=== PATIENT | female | born 1990 | race Caucasian/White ===

== ENCOUNTER 2022-03-13 11:51 | Emergency (ER) | payer MEDICAID ==
[~2022-03-13] VITALS: Ht 172.7 cm; Wt 55.3 kg
[2022-03-13 12:15] VITALS: BP 116/60
[2022-03-13] MEDS ORDERED: ACETAMINOPHEN 500 MG TAB PO ONE (12:30)
[2022-03-13] MEDS ORDERED: DEXT1SYP9 PO (16:21)
== END 2022-03-13 16:42 | disposition home or self-care (01) ==
LOC: ER 11:51
DX: J10.1 Influenza due to other identified influenza virus with other respiratory manifestations (principal); R94.31 Abnormal electrocardiogram [ECG] [EKG]; Z20.822 Contact with and (suspected) exposure to COVID-19
CPT/HCPCS: 36415; 87426; 87804; 93005

== ENCOUNTER 2024-03-22 15:08 | Emergency (ER) | payer MEDICAID, OTHER ==
[~2024-03-22] VITALS: Ht 172.7 cm; Wt 58.0 kg
[~2024-03-22 15:08] MED LIST: DEXT1SYP9 PO
[2024-03-22] MEDS: MORPHINE SULFATE 4 MG/ML SYR/VIAL IV ONE (16:00)
[2024-03-22 16:02] LABS: Basophils # (auto) 0 10 ^3/uL (0-0.2); Basophils % (auto) 0.2 % (0.0-2.0); Eosinophils # (auto) 0 10 ^3/uL (0-0.8); Hematocrit 39.6 % (36.0-46.0); Hemoglobin 13.4 g/dL (12.2-16.2); Lymphocytes # (auto) 0.8 10 ^3/uL (0.4-5.4); Lymphocytes % (auto) 5.9 % (10.0-50.0); Mean Corpuscular Hemoglobin 31.6 pg (28.0-32.0); Mean Corpuscular Hgb Conc. 33.8 g/dL (32.0-36.0); Mean Corpuscular Volume 93.5 fL (80.0-100.0); Monocytes # (auto) 0.3 10 ^3/uL (0-1.3); Monocytes % (auto) 2.4 % (0.0-12.0); Neutrophils # (auto) 12.1 10 ^3/uL (1.6-8.6); Neutrophils % (auto) 91.5 % (37.0-80.0); Platelet Count (auto) 189 10^3/uL (140-450); Red Blood Cells 4.24 10^6/uL (4.0-5.20); Red Cell Distribution Width 12.6 % (11.8-14.3); White Blood Cell 13.2 10^3/uL (4.4-10.8)
[2024-03-22 16:18] LABS: Alanine Aminotransferase 31 U/L (7-40); Anion Gap 10 (5-15); Aspartate Aminotransferase 29 U/L (13-40); BUN/Creatinine Ratio 10.1 (10.0-20.0); Bilirubin, Total 0.3 mg/dL (0.2-1.0); Carbon Dioxide 22 mmol/L (20-31); Potassium 3.9 mmol/L (3.5-5.1); Total Protein 6.4 g/dL (5.7-8.2)
--- NOTE | 2024-03-22 16:20 | ED.PDOC ---
GI ASSESSMENT HPI Comments 33 year old female brought in by EMS presents to the ED with a chief complaint of epigastric pain onset today about 3 hours ago. Patient states she was drinking ETOH last night and woke up today experiencing nausea, vomiting, diarrhea, epigastric pain, generalized weakness, sweats, chills. She has a past medical history of Sclerosis and denies fevers, chest pain, shortness of breath, constipation, headache, dizziness. No other symptoms or modifying factors present at this time. Chief Complaint: Abdominal Pain Time Seen by MD: 15:33 Primary Care Provider: NONE Allergies: Coded Allergies: NO KNOWN ALLERGIES (Unverified , 12/26/09) Home Meds Active Scripts Dextromethorphan-Guaifenesin (Robitussin-Dm) 10 Ml Sr, 20 ML PO Q4HPRN PRN, #1 BOTTLE 0 Refills Prov:MIMI LUND [facility] 03/13/22 Information Source: Patient Mode of Arrival: EMS Timing: Hours Duration: Since onset Prehospital treatment: None Severity: Moderate Recent: Ingestion of ETOH Recent Hx of: None Pain Location: Diffuse Associated sign and symptoms: Nausea, Vomiting, Diarrhea, Abdominal Pain Past Medical History Past Medical History (Other): Scoliosis Surgical History (Other): Scoliosis surgery 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 Family History Family History: No family hx of DM, No family hx of HTN Social History Smoker: Less Than 1 Pack/Day Alcohol: Occasionally Drugs: Denies Drug Use Lives In: Home Constitutional: reports: chills, sweats, weakness; denies: diaphoresis, fatigue, fever, malaise, others EENTM: denies: blurred vision, double vision, ear bleeding, ear discharge, ear drainage, ear pain, ear ringing, eye pain, eye redness, hearing loss, mouth pain, mouth swelling, nasal discharge, nose bleeding, nose congestion, nose pain, photophobia, tearing, throat pain, throat swelling, voice changes, others Respiratory: denies: cough, hemoptysis, orthopnea, SOB at rest, shortness of breath, SOB with excertion, stridor, wheezing, others Cardiovascular: denies: chest pain, dizzy spells, diaphoresis, Dyspnea on exertion, edema, irregular heart beat, left arm pain, lightheadedness, palpitations, PND, syncope, others Gastrointestinal: reports: abdominal pain, diarrhea, nausea, vomiting; denies: abdomen distended, blood streaked bowels, constipated, dysphagia, difficulty swallowing, hematemesis, melena, poor appetite, poor fluid intake, rectal bleeding, rectal pain, others Genitourinary: denies: abnormal vagina bleeding, burning, dyspareunia, dysuria, flank pain, frequency, hematuria, incontinence, pain, , vagina discharge, urgency, others Neurological: denies: dizziness, fainting, headache, left sided numbness, left sided weakness, numbness, paresthesia, pre-existing deficit, right sided numbness, right sided weakness, seizure, speech problems, tingling, tremors, weakness, others Musculoskeletal: denies: back pain, gout, joint pain, joint swelling, muscle pain, muscle stiffness, neck pain, others Integumetry: denies: bruises, change in color, change in hair/nails, dryness, laceration, lesions, lumps, rash, wounds, others Allergic/Immunocompromised: denies: Difficulty Healing, Frequent Infections, Hives, Itching, others Hematologic/Lymphatic: denies: anemia, blood clots, easy bleeding, easy brui sing, swollen glands, others Endocrine: denies: excessive hunger, excessive sweating, excessive thirst, ex cessive urination, flushing, intolerance to cold, intolerance to heat, unexplained weight gain, unexplained weight loss, others Psychiatric: denies: anxiety, bipolar disorder, depression, hopeless, panic disorder, schizophrenia, sleepless, suicidal, others All Other Systems: Reviewed and Negative Physical Exam General Appearance: Moderate Distress HEENT: Other (Pupils symmetric, no facial asymmetry, moist mucous membrane) Neck: Full Range of Motion, Normal Inspection Respiratory: Lungs Clear, No Accessory Muscle Use, No Respiratory Distress, Normal Breath Sounds Cardiovascular: No Edema, No JVD, Regular Rate/Rhythm Breast Exam: Deferred Gastrointestinal: Epigastric, Soft, Tenderness Genitalia: Deferred Pelvic: Deferred Rectal: Deferred Extremities: Normal inspection, Normal range of motion, Non-tender, No pedal edema Neurologic: Alert (Oriented x4), Normal Affect, Normal Mood, Other (Ambulatory without difficulty. No gross focal deficit.) Cerebellar Function: NOT DONE Reflexes: NOT DONE Skin: Dry, Pallor, Warm Lymphatic: NOT DONE Was a procedure done? Was a procedure done?: No GI differential Dx Differential Diagnosis: Diverticular disease, Gastritis/PUD, Gastroenteritis, Inflammatory BD, Ischemic Bowel, Electrolyte Imbalance, Food Poisoning, , Bacterial, Parasitic, Viral, Hypovolemia, Renal Failure, Stress Ulcer X-Ray, Labs, Meds, VS Vital Signs Date Time Temp Pulse Resp B/P (MAP) Pulse Ox O2 Delivery O2 Flow Rate FiO2 03/22/24 18:37 65 17 100 Room Air 03/22/24 18:37 98.0 65 17 118/70 (86) 100 98.0 03/22/24 15:39 97.9 58 20 104/55 (71) 99 Lab Test 03/22/24 15:38 Range/Units White Blood Count 13.2 H 4.4-10.8 10^3/uL Red Blood Count 4.24 4.0-5.20 10^6/uL Hemoglobin 13.4 12.2-16.2 g/dL Hematocrit 39.6 36.0-46.0 % Mean Corpuscular Volume 93.5 80.0-100.0 fL Mean Corpuscular Hemoglobin 31.6 28.0-32.0 pg Mean Corpuscular Hemoglobin Concent 33.8 32.0-36.0 g/dL Red Cell Distribution Width 12.6 11.8-14.3 % Platelet Count 189 140-450 10^3/uL Mean Platelet Volume 8.6 6.9-10.8 fL Neutrophils (%) (Auto) 91.5 H 37.0-80.0 % Lymphocytes (%) (Auto) 5.9 L 10.0-50.0 % Monocytes (%) (Auto) 2.4 0.0-12.0 % Eosinophils (%) (Auto) 0.0 0.0-7.0 % Basophils (%) (Auto) 0.2 0.0-2.0 % Neutrophils # (Auto) 12.1 H 1.6-8.6 10 ^3/uL Lymphocytes # (Auto) 0.8 0.4-5.4 10 ^3/uL Monocytes # (Auto) 0.3 0-1.3 10 ^3/uL Eosinophils # (Auto) 0 0-0.8 10 ^3/uL Basophils # (Auto) 0 0-0.2 10 ^3/uL Nucleated Red Blood Cells 0.0 % Sodium Level 146 H 136-145 mmol/L Potassium Level 3.9 3.5-5.1 mmol/L Chloride Level 114 H 98-107 mmol/L Carbon Dioxide Level 22 20-31 mmol/L Anion Gap 10 5-15 Blood Urea Nitrogen 7 L 9-23 mg/dL Creatinine 0.69 0.550-1.02 mg/dL Glomerular Filtration Rate Calc 119 >90 mL/min BUN/Creatinine Ratio 10.1 10.0-20.0 Serum Glucose 129 H 74-106 mg/dL Calcium Level 8.5 L 8.7-10.4 mg/dL Total Bilirubin 0.3 0.2-1.0 mg/dL Aspartate Amino Transferase (AST) 29 13-40 U/L Alanine Aminotransferase (ALT) 31 7-40 U/L Alkaline Phosphatase 44 L 46-116 U/L Total Protein 6.4 5.7-8.2 g/dL Albumin 4.0 3.2-4.8 g/dL Lipase 25 12-53 U/L Beta HCG, Quantitative 1.5 1.5-4.2 mIU/mL Current Medications Medications (Trade) Dose Ordered Sig/Henok Route Start Time Stop Time Status Last Admin Ondansetron HCl (Zofran) 4 mg ONCE ONCE IV 03/22/24 16:00 03/22/24 16:02 DC 03/22/24 18:37 Famotidine (Pepcid Injection) 20 mg ONCE ONCE IV 03/22/24 16:00 03/22/24 16:02 DC 03/22/24 18:37 Sodium Chloride 2,000 ml @ 1,000 mls/hr Q2H ONCE IV 03/22/24 16:00 03/22/24 17:59 DC 03/22/24 18:34 PROCEDURE(s): ABPL - CT AB PEL WO CON-NO ORAL OR IV REASON: upper abd pain ORDER NUMBER(s): [id number], ACCESSION NUMBER(s): [id number] Exam: CT CT AB PEL WO CON-NO ORAL OR IV History: upper abd pain Comparison Study: None Technique: Multidetector spiral CT of the abdomen was performed from lung bases to pubic symphysis. Imaging was performed without IV contrast. Axial, coronal and sagittal multiplanar reformats were obtained from the axial data set by the technologist. Radiation Dose : 1. Abdomen/Pelvis: CTDIvol 5.4 mGy, DLP 263.85 mGy*cm. Findings: Evaluation of solid organs is limited due to lack of intravenous contrast use. Lung Bases: No acute or significant lung base finding. Normal heart size. No pleural or pericardial effusion. Liver: The liver is normal in size. No focal lesions. Gallbladder and Biliary Tree: Unremarkable Spleen: Unremarkable Pancreas: The pancreas is grossly normal in appearance. Adrenal Glands: Unremarkable Kidneys: Kidneys are grossly normal without calculi or hydronephrosis. Bladder: Grossly unremarkable for degree of distention. Bowel: The stomach is grossly normal in appearance. Mild wall thickening in a few loops of bowel in the lower pelvis may reflect mild enteritis. Normal appendix is visualized in the right lower quadrant without findings of appendicitis. Ascites: Absent Lymphadenopathy: No mesenteric, retroperitoneal or periportal lymphadenopathy. Abdominal Wall and Mesentery: Unremarkable. Vasculature: The visualized abdominal aorta is normal in size and caliber. Evaluation of abdominal and pelvic vessels is limited due to lack of intravenous contrast. Pelvic Organs: Unremarkable Musculoskeletal: No aggressive focal bony lesions, acute fractures or dislocation. Surgical fixation hardware is seen throughout the thoracic spine. IMPRESSION: 1. Mild wall thickening in a few loops of bowel in the lower pelvis this may reflect mild enteritis. No drainable fluid collection. No free air. 2. Radiation optimization: All CT scans at this facility use at least one of these dose optimization techniques: automated exposure control mA and/or kV adjustment per patient size (includes targeted exams where dose is matched to clinical indication) or iterative reconstruction. X-Ray, Labs, Meds, VS Comment 33-year-old female with a history of scoliosis complaining of abdominal pain, nausea, vomiting and diarrhea. Vitals remarkable for heart rate 58, blood pressure 104/55 Exam remarkable for epigastric tenderness to palpation Rhythm strip independently interpreted by me: Sinus rhythm, rate 60, no ectopy. CT abdomen and pelvis IMPRESSION: 1. Mild wall thickening in a few loops of bowel in the lower pelvis this may reflect mild enteritis. No drainable fluid collection. No free air. 2. Radiation optimization: All CT scans at this facility use at least one of these dose optimization techniques: automated exposure control mA and/or kV adjustment per patient size (includes targeted exams where dose is matched to clinical indication) or iterative reconstruction. CBC remarkable for WBC 13.2, differential shows a left shift, CMP remarkable for sodium 146, chloride 114, no other abnormality of acute significance, hCG negative, lipase normal Patient treated with the following in the ED: 2 L 0.9 normal saline IV bolus, morphine 4 mg IV, Zofran 4 mg IV, Pepcid 20 mg IV, Toradol 30 mg IV On re-evaluation, patient states pain has improved, vitals are stable, and she is tolerating p.o. fluids. Repeat abdominal exam is benign. Hospitalization was considered, however patient had rapid improvement of her symptoms with treatment in the ED, and I no longer feel hospitalization is necessary. Patient appears stable for outpatient treatment and close follow-up with her primary doctor. I will prescribe antibiotics for possible bacterial enteritis, antiemetics and pain meds. Rx Cipro, Flagyl, Zofran, Bentyl, ibuprofen Time of 1ST Reevaluation: 16:03 Reevaluation 1ST: Unchanged Time of 2ND Reevaluation: 19:18 Reevaluation 2ND: Improved Patient Education/Counseling: Diagnosis, Treatment, Prognosis Family Education/Counseling: No Family Present Additional Information HI Data VOL/Complexity Ordered tests: LAB, CT, PHA reviewed results: CBC, CMP, BETA HCG, UA, LIPASE, DRUG SCREEN independent historian: EMS Interpreted results: CT Discuss tx/ results: patient, medical personnel, Departure 1 Departure Time of Disposition: 19:19 Impression: Primary Impression: Enteritis Disposition: 01 HOME / SELF CARE / HOMELESS Condition: Stable Additional Instructions: Your CT scan showed possible enteritis, which may be due to a viral or bacterial infection. I have prescribed antibiotics for a possible bacterial infection, medication for nausea and pain medication. Follow-up with your primary doctor in 1-2 days. Return to ER for persistent or worsening symptoms. e-Prescriptions Ibuprofen Micronized (Ibuprofen) 600 Mg Tab 600 MG PO Q6HP PRN, #30 TAB prn pain Prov: SHAYLEE DONG MD 03/22/24 Dicyclomine Hcl (BENTYL CAPSULE) 10 Mg Cp 2 CAP PO Q6HPRN, #30 CAP 3 Refills prn abdominal pain Prov: SHAYLEE DONG MD 03/22/24 Ondansetron Odt 4MG Tab (ZOFRAN PO) 4 Mg Tb 4 MG PO TID PRN, #30 TAB prn n/v ODT TAB-DISSOLVE IN MOUTH, THEN SWALLOW Prov: SHAYLEE DONG MD 03/22/24 Metronidazole (Flagyl) 500 Mg Tab 1 TAB PO TID for 7 Days, #21 TAB Prov: SHAYLEE DONG MD 03/22/24 Ciprofloxacin Hcl (Cipro) 500 Mg Tab 1 TAB PO BID for 7 Days, #14 TAB Prov: SHAYLEE DONG MD 03/22/24 Discharged With: Relative Critical Care Note Critical Care Time?: No Stability Stability form required: No Heart Score Heart Score: Heart Score Response (Comments) Value History N/A 0 EKG N/A 0 Age N/A 0 Risk Factors N/A 0 Troponin N/A 0 Total 0 I personally scribed for SHAYLEE DONG MD ([email or web address]) on 03/22/24 at 16:20. Electronically submitted by Pamela Corral ([email or web address]). I personally scribed for SHAYLEE DONG MD ([email or web address]) on 03/22/24 at 16:23. Electronically submitted by Pamela Corral ([email or web address]). SHAYLEE DONG MD Mar 22, 2024 16:20
[2024-03-22 16:44] LABS: Alkaline Phosphatase 44 U/L (46-116); Blood Urea Nitrogen 7 mg/dL (9-23); Calcium 8.5 mg/dL (8.7-10.4); Chloride 114 mmol/L (98-107); Glucose 129 mg/dL (74-106); Sodium 146 mmol/L (136-145)
--- NOTE | 2024-03-22 17:41 | DVH ---
Exam: CT CT AB PEL WO CON-NO ORAL OR IV History: upper abd pain Comparison Study: None Technique: Multidetector spiral CT of the abdomen was performed from lung bases to pubic symphysis. Imaging was performed without IV contrast. Axial, coronal and sagittal multiplanar reformats were ob tained from the axial data set by the technologist. Radiation Dose : 1. Abdomen/Pelvis: CTDIvol 5.4 mGy, DLP 263.85 mGy*cm. Findings: Evaluation of solid organs is limited due to lack of intravenous contrast use. Lung Bases: No acute or significant lung base finding. Normal heart size. No pleural or pericardial effusion. Liver: The liver is normal in size. No focal lesions. Gallbladder and Biliary Tree: Unremarkable Spleen: Unremarkable Pancreas: The pancreas is grossly normal in appearance. Adrenal Glands: Unremarkable Kidneys: Kidneys are grossly normal without calculi or hydronephrosis. Bladder: Grossly unremarkable for degree of distention. Bowel: The stomach is grossly normal in appearance. Mild wall thickening in a few loops of bowel in t he lower pelvis may reflect mild enteritis. Normal appendix is visualized in the right lower quadran t without findings of appendicitis. Ascites: Absent Lymphadenopathy: No mesenteric, retroperitoneal or periportal lymphadenopathy. Abdominal Wall and Mesentery: Unremarkable. Vasculature: The visualized abdominal aorta is normal in size and caliber. Evaluation of abdominal a nd pelvic vessels is limited due to lack of intravenous contrast. Pelvic Organs: Unremarkable Musculoskeletal: No aggressive focal bony lesions, acute fractures or dislocation. Surgical fixation hardware is seen throughout the thoracic spine. IMPRESSION: 1. Mild wall thickening in a few loops of bowel in the lower pelvis this may reflect mild enteritis. No drainable fluid collection. No free air. 2. Radiation optimization: All CT scans at this facility use at least one of these dose optimization techniques: automated exposure control mA and/or kV adjustment per patient size (includes targeted e xams where dose is matched to clinical indication) or iterative reconstruction.
[2024-03-22] MEDS: SODIUM CHLORIDE 0.9% 2,000 ML IV ONE (18:34)
[2024-03-22] MEDS: FAMOTIDINE (10MG/ML) 2ML VL IV ONE (18:37)
[2024-03-22] MEDS: ONDANSETRON HCL 4 MG/2 ML VIAL IV ONE (18:37)
[2024-03-22] MEDS ORDERED: DICY10CA PO (19:24)
[2024-03-22] MEDS ORDERED: CIPR-173 PO (19:24)
[2024-03-22] MEDS ORDERED: ZOFR4T PO (19:24)
[2024-03-22] MEDS ORDERED: IBUP1TAB5 PO (19:24)
[2024-03-22] MEDS ORDERED: METR-344 PO (19:24)
[2024-03-22] MEDS ORDERED: SODIUM CHLORIDE 0.9% 1,000 ML IV ONE (19:30)
[2024-03-22] MEDS: KETOROLAC TROMETH 30 MG/ML 1ML VIAL IV ONE (19:31)
[2024-03-22 20:10] VITALS: BP 102/63; PULSE 72; RESP 16; TEMP 98.5; O2SAT 98
== END 2024-03-22 20:15 | disposition home or self-care (01) ==
LOC: ER 15:08 → EDBD 15:08 → ER 20:15
DX: K52.9 Noninfective gastroenteritis and colitis, unspecified (principal); R10.2 Pelvic and perineal pain; F17.210 Nicotine dependence, cigarettes, uncomplicated; Z98.890 Other specified postprocedural states; Z79.899 Other long term (current) drug therapy
CPT/HCPCS: 36415; 74176; 80053; 83690; 84702; 85025; 96361; 96374; 96375; 99285; J1885; J2405; J3490; J7030